=== PATIENT | female | born 1990 | race Caucasian/White ===

== ENCOUNTER 2023-12-14 00:58 | Emergency (ER) | payer MEDICAID, OTHER ==
[~2023-12-14] VITALS: Ht 157.5 cm; Wt 71.6 kg
[~2023-12-14 00:58] MED LIST: ENOX40SY27 SQ
[2023-12-14 01:14] VITALS: O2SAT 98
[2023-12-14 01:52] LABS: CLARITY URINE CLEAR (CLEAR); COLOR URINE YELLOW (YELLOW); GLUCOSE URINE NEGATIVE (NEGATIVE); KETONES URINE NEGATIVE (NEGATIVE); LEUKOCYTE ESTERASE URINE 1+ (NEGATIVE); NITRITE URINE NEGATIVE (NEGATIVE); OCCULT BLOOD URINE 3+ (NEGATIVE); PH URINE 7.5 (4.5-8.0); PROTEIN URINE NEGATIVE (NEGATIVE); SPECIFIC GRAVITY URINE 1.009 (1.005-1.030); UROBILINOGEN URINE 0.2 E.U./dL (0.2-1.0)
[2023-12-14 04:54] LABS: BACTERIA URINE TRACE; RBC URINE 0-2 /hpf (0-2); SQUAMOUS EPITHELIAL CELL URINE 1+ /lpf (RARE/1+); WBC URINE 0-2 /hpf (0-2)
[2023-12-14 05:30] VITALS: BP 126/79; PULSE 70; RESP 18; TEMP 97.7
== END 2023-12-14 05:47 | disposition home or self-care (01) ==
LOC: ER 00:58
DX: N93.9 Abnormal uterine and vaginal bleeding, unspecified (principal); F11.10 Opioid abuse, uncomplicated
CPT/HCPCS: 76830; 76856; 81003; 81025; 99283; 99284